=== PATIENT | female | born 1960 | race Caucasian/White ===

== ENCOUNTER → 2020-05-26 | Outpatient (CLI) | payer MEDICARE ==
[~2020-05-26] MED LIST: SUBOXONE 8 MG-1 EACH SL
[2020-05-26 15:23] LABS: HEMOGLOBIN 14.3 gm/dl (12.3-15.3); RED BLOOD COUNT 4.55 M/UL (4.00-5.10); WHITE BLOOD COUNT 2.9 K/UL (4.5-11.0)
[2020-05-26 15:48] LABS: BUN/CREATININE RATIO 15 (0-10)
[2020-05-27 08:15] LABS: HIV SCREEN 4TH GENERATION WRFX Non Reactive (Non Reactive)
[2020-05-27 10:15] LABS: HBSAG SCREEN Negative (Negative); HEP A AB, IGM Negative (Negative); HEP B CORE AB, IGM Negative (Negative); HEP C VIRUS AB <0.1 (0.0-0.9)
[2020-05-28 00:08] LABS: HEPATITIS C QUANTITATION HCV Not Detected IU/mL (.)
== END ==
LOC: LAB 13:27
PROVIDERS: Family Medicine
DX: F11.20 Opioid dependence, uncomplicated (principal); B17.9 Acute viral hepatitis, unspecified; Z11.4 Encounter for screening for human immunodeficiency virus [HIV]
CPT/HCPCS: 80053; 80074; 85025; 87340; 87389; 87522

== ENCOUNTER 2020-10-09 09:48 | Inpatient (IN) | payer MEDICARE ==
[~2020-10-09] VITALS: Ht 170.2 cm; Wt 80.3 kg
[2020-10-09 10:27] LABS: RED BLOOD COUNT 4.16 M/UL (4.00-5.10)
[2020-10-09 11:22] LABS: BUN/CREATININE RATIO 15 (0-10)
[2020-10-09] MEDS ORDERED: SUBOXONE 8 MG-1 EACH SL (15:45)
[2020-10-10 03:16] LABS: HEMOGLOBIN 12.4 gm/dl (12.3-15.3); RED BLOOD COUNT 3.96 M/UL (4.00-5.10); WHITE BLOOD COUNT 3.5 K/UL (4.5-11.0)
--- NOTE | 2020-10-10 17:28 | NUR ---
PATIENTS FAMILY IS AT BEDSIDE AND TOUCHING THE MONITOR TO SUSPEND ALARMS
[2020-10-11 03:47] LABS: HEMOGLOBIN 11.6 gm/dl (12.3-15.3); RED BLOOD COUNT 3.76 M/UL (4.00-5.10); WHITE BLOOD COUNT 3.2 K/UL (4.5-11.0)
[2020-10-12 03:01] LABS: HEMOGLOBIN 11.1 gm/dl (12.3-15.3); RED BLOOD COUNT 3.66 M/UL (4.00-5.10); WHITE BLOOD COUNT 3.5 K/UL (4.5-11.0)
[2020-10-12] MEDS ORDERED: BETAPACE 80MG T80 MG PO (11:50)
[2020-10-12] MEDS ORDERED: ELIQUIS5 MG PO (11:57)
== END 2020-10-12 15:01 | disposition home or self-care (01) | DRG 309 ==
LOC: ER1 09:48 → CDU 14:26 → PROG CARE 14:26
PROVIDERS: Emergency Medicine; Physician Assistant Medical; ADMIT Internal Medicine
PROC: B24BZZ4 Ultrasonography of Heart with Aorta, Transesophageal (ICD-10-PCS; principal; 2020-10-09)
PROC: 5A2204Z Restoration of Cardiac Rhythm, Single (ICD-10-PCS; 2020-10-09)
DX: I48.0 Paroxysmal atrial fibrillation (principal); I50.22 Chronic systolic (congestive) heart failure; Z20.822 Contact with and (suspected) exposure to COVID-19; D50.9 Iron deficiency anemia, unspecified; I34.0 Nonrheumatic mitral (valve) insufficiency; R73.9 Hyperglycemia, unspecified; D69.6 Thrombocytopenia, unspecified; R74.01 Elevation of levels of liver transaminase levels; D72.818 Other decreased white blood cell count; Z86.16 Personal history of COVID-19; Z98.84 Bariatric surgery status; Z90.710 Acquired absence of both cervix and uterus; Z90.49 Acquired absence of other specified parts of digestive tract; Z80.8 Family history of malignant neoplasm of other organs or systems; Z79.01 Long term (current) use of anticoagulants
CPT/HCPCS: ECHO; 0240U; 36415; 71045; 80048; 80053; 80061; 81001; 82550; 82553; 83036; 83605; 83735; 84439; 84443; 84484; 85025; 85027; 87040; 93005; 93270; 93306; 93312; 93320; 96374; 96375; 99285; J1650; J2250; J3010; J7030; Q9967

== ENCOUNTER 2021-05-16 08:07 | Emergency (ER) | payer OTHER, MEDICARE ==
[~2021-05-16 08:07] MED LIST changes: +BETAPACE 80MG T80 MG PO; +ELIQUIS5 MG PO
[2021-05-16] MEDS ORDERED: CYCLOBENZAPRINE10 MG PO (08:23)
== END 2021-05-16 08:53 | disposition home or self-care (01) ==
LOC: ER1 08:07
DX: S16.1XXA Strain of muscle, fascia and tendon at neck level, initial encounter (principal); V69.9XXA Occupant (driver) (passenger) of heavy transport vehicle injured in unspecified traffic accident, initial encounter
CPT/HCPCS: 96372; 99283; J1885

== ENCOUNTER 2021-08-27 01:53 | Inpatient (IN) | payer MEDICARE, MEDICAID ==
[~2021-08-27] VITALS: Ht 170.2 cm; Wt 91.5 kg
[~2021-08-27 01:53] MED LIST changes: +CYCLOBENZAPRINE10 MG PO
[2021-08-27 02:43] LABS: HEMOGLOBIN 13.3 gm/dl (12.3-15.3); RED BLOOD COUNT 4.36 M/UL (4.00-5.10); WHITE BLOOD COUNT 3.9 K/UL (4.5-11.0)
--- NOTE | 2021-08-27 09:00 | NUR ---
WHILE GIVING PATIENTS SUBOXONE DOSE, PATIENT SAYS SHE IS GOING TO SPIT OUT THE SUBOXONE. PATIENT SPITS MEDICATION INTO CUP. MEDICATION IS WASTED AND RECORDED IN OMNICELL.
[2021-08-28 02:52] LABS: HEMOGLOBIN 12.9 gm/dl (12.3-15.3); RED BLOOD COUNT 4.25 M/UL (4.00-5.10); WHITE BLOOD COUNT 4.1 K/UL (4.5-11.0)
[2021-08-29 03:03] LABS: HEMOGLOBIN 12.4 gm/dl (12.3-15.3); RED BLOOD COUNT 4.14 M/UL (4.00-5.10); WHITE BLOOD COUNT 4.8 K/UL (4.5-11.0)
[2021-08-30 02:53] LABS: HEMOGLOBIN 12.4 gm/dl (12.3-15.3); RED BLOOD COUNT 4.16 M/UL (4.00-5.10); WHITE BLOOD COUNT 4.2 K/UL (4.5-11.0)
[2021-08-30] MEDS ORDERED: DIGOXIN125 MCG PO (13:47)
[2021-08-30] MEDS ORDERED: ELIQUIS 5 MG TAB5 MG PO (13:47)
[2021-08-30] MEDS ORDERED: AMIODARONE HCL200 MG PO (13:50)
[2021-08-30] MEDS ORDERED: OMNICEF 300 MG300 MG PO (13:50)
== END 2021-08-30 15:02 | disposition home or self-care (01) | DRG 308 ==
LOC: ER1 01:53 → PROG CARE 04:00 → CDU 04:00 → PROG CARE 06:53
PROVIDERS: Family Medicine; Internal Medicine; ADMIT Internal Medicine
PROC: B24BZZZ Ultrasonography of Heart with Aorta (ICD-10-PCS; principal; 2021-08-27)
DX: I48.0 Paroxysmal atrial fibrillation (principal); J18.9 Pneumonia, unspecified organism; F11.20 Opioid dependence, uncomplicated; Z20.822 Contact with and (suspected) exposure to COVID-19; I51.3 Intracardiac thrombosis, not elsewhere classified; D50.9 Iron deficiency anemia, unspecified; D69.6 Thrombocytopenia, unspecified; E66.9 Obesity, unspecified; I34.0 Nonrheumatic mitral (valve) insufficiency; Z91.14 Patient's other noncompliance with medication regimen; Z98.84 Bariatric surgery status; Z90.49 Acquired absence of other specified parts of digestive tract; Z83.3 Family history of diabetes mellitus; Z90.710 Acquired absence of both cervix and uterus; Z79.01 Long term (current) use of anticoagulants; Z68.31 Body mass index [BMI] 31.0-31.9, adult
CPT/HCPCS: 36415; 71045; 71046; 80053; 80307; 81001; 82550; 82553; 82962; 83605; 83735; 83880; 84100; 84439; 84443; 84484; 85025; 85027; 85610; 85730; 93005; 93312; 93320; 94640; 94760; 96374; 99285; J0696; J1160; J1644; J1940; J2250; J3010